=== PATIENT | male | born 1995 | race African-American/Black ===

== ENCOUNTER 2017-01-28 11:48 | Emergency (ER) | payer SELFPAY ==
[2017-01-28 12:07] VITALS: BP 125/62
[2017-01-28] MEDS ORDERED: diphenhydrAMINE HCL 25 MG CAPSULE PO ONE (13:00)
[2017-01-28] MEDS ORDERED: DEXAMETHASONE 4 MG TABLET PO ONE (13:00)
--- NOTE | 2017-01-28 13:48 | PHYS DOC ---
Past Medical History Past Medical History: No Pertinent History Past Surgical History: No Surgical History Alcohol Use: Occasionally Drug Use: None Adult General Chief Complaint Chief Complaint: SORE THROAT HPI HPI Patient is a 21 year old male presenting to the emergency department for evaluation of sore throat sinus congestion runny nose and nonproductive cough for the past 2-3 days. No fevers chills nausea vomiting or systemic symptoms. He has not tried anything for his symptoms. Review of Systems Review of Systems Constitutional: Denies fever or chills [] Eyes: Denies change in visual acuity, redness, or eye pain [] HENT: + nasal congestion and sore throat [] Respiratory: + cough. No shortness of breath [] Cardiovascular: No additional information not addressed in HPI [] GI: Denies abdominal pain, nausea, vomiting, bloody stools or diarrhea [] Current Medications Current Medications Current Medications Medications (Trade) Dose Ordered Sig/John Start Time Stop Time Status Last Admin Dose Admin Dexamethasone (Decadron) 10 mg 1X ONCE 01/28/17 13:00 01/28/17 13:01 DC 01/28/17 13:00 10 MG Diphenhydramine HCl (Benadryl) 50 mg 1X ONCE 01/28/17 13:00 01/28/17 13:01 DC 01/28/17 13:00 50 MG Allergies Allergies Allergies Coded Allergies Type Severity Reaction Last Updated Verified No Known Drug Allergies 01/06/16 No Physical Exam Physical Exam Constitutional: Well developed, well nourished, no acute distress, non-toxic appearance. [] HENT: Normocephalic, atraumatic, bilateral external ears normal, oropharynx moist, no oral exudates, nose normal. [] Eyes: PERRLA, EOMI, conjunctiva normal, no discharge. [] Neck: Normal range of motion, no tenderness, supple, no stridor. [] Cardiovascular:Heart rate regular rhythm, no murmur [] Lungs & Thorax: Bilateral breath sounds clear to auscultation [] Abdomen: Bowel sounds normal, soft, no tenderness, no masses, no pulsatile masses. [] Skin: Warm, dry, no erythema, no rash. [] Back: No tenderness, no CVA tenderness. [] Extremities: No tenderness, no cyanosis, no clubbing, ROM intact, no edema. [] Neurologic: Alert and oriented X 3, normal motor function, normal sensory function, no focal deficits noted. [] Psychologic: Affect normal, judgement normal, mood normal. [] Current Patient Data Vital Signs Vital Signs Date Time Temp Pulse Resp B/P Pulse Ox O2 Delivery O2 Flow Rate FiO2 01/28/17 12:07 98.8 75 18 97 Room Air 98.8 Lab Values Laboratory Tests Test 01/28/17 12:36 Group A Streptococcus Rapid Negative (NEGATIVE) EKG EKG [] Radiology/Procedures Radiology/Procedures [] Course & Med Decision Making Course & Med Decision Making Strep test is negative. It appears that he has a URI based on history and physical exam with some pharyngitis. He may also have some allergy induced symptoms well. He was given Decadron and Benadryl here and told to take Motrin Benadryl Nasonex at home and follow with his primary care provider next week to ensure improvement come back to the ER sooner with any worsening pain fevers vomiting with additional concerns. Patient aware and agreeable with plan and verbalized understanding of the above instructions. Dragon Disclaimer Dragon Disclaimer This electronic medical record was generated, in whole or in part, using a voice recognition dictation system. Departure Departure Impression: Primary Impression: Pharyngitis Disposition: HOME, SELF-CARE Condition: GOOD Referrals: NO PCP (PCP) Patient Instructions: Viral Pharyngitis Additional Instructions: TAKE NASONEX OTC IN ADDITION TO BENADRYL. THANK YOU! Problem Qualifiers Primary Impression: Pharyngitis Pharyngitis/tonsillitis etiology: unspecified etiology Qualified Code: J02.9 - Acute pharyngitis, unspecified ODILIA KING DO Jan 28, 2017 13:48
[2017-01-28 14:16] LABS: NEGATIVE OBC STREP NEG; POSITIVE OBC STREP POS
== END 2017-01-28 13:52 | disposition home or self-care (01) ==
LOC: ER 11:48
DX: J02.9 Acute pharyngitis, unspecified (principal)
CPT/HCPCS: 87070; 87880; 99283; J8540; Q0163